=== PATIENT | male | born 1970 | race Caucasian/White ===

== ENCOUNTER 2020-12-29 06:21 | Emergency (ER) | payer BC ==
[~2020-12-29] VITALS: Ht 185.4 cm; Wt 117.0 kg
[2020-12-29 06:25] VITALS: BP_SYST 160
[2020-12-29] MEDS ORDERED: prednisoLONE 15 MG/5 ML UDC PO ONE (06:45)
[2020-12-29] MEDS ORDERED: PRED20TA PO (08:42)
[2020-12-29] MEDS ORDERED: CYCL-10 PO (08:42)
[2020-12-29 08:55] VITALS: BP_SYST 160
== END 2020-12-29 08:56 | disposition home or self-care (01) ==
LOC: SED 06:21
DX: M51.16 Intervertebral disc disorders with radiculopathy, lumbar region (principal); Z79.899 Other long term (current) drug therapy
CPT/HCPCS: 72131; 76376; 99284